=== PATIENT | female | born 1960 | race Caucasian/White ===

== ENCOUNTER 2017-05-31 15:49 | Emergency (ER) | payer OTHER ==
[~2017-05-31] VITALS: Ht 175.3 cm; Wt 67.6 kg
[2017-05-31] MEDS ORDERED: XARELTO15 MG PO (16:00)
[2017-05-31] MEDS ORDERED: NAPROSYN500 MG PO (18:25)
[2017-05-31] MEDS ORDERED: NORFLEX100 MG PO (18:25)
[2017-05-31 18:50] VITALS: BP 143/90
== END 2017-05-31 18:35 | disposition home or self-care (01) ==
LOC: ER 15:49
DX: S16.1XXA Strain of muscle, fascia and tendon at neck level, initial encounter (principal); S09.90XA Unspecified injury of head, initial encounter; Z88.8 Allergy status to other drugs, medicaments and biological substances; V43.52XA Car driver injured in collision with other type car in traffic accident, initial encounter; Y93.I9 Activity, other involving external motion; Y92.488 Other paved roadways as the place of occurrence of the external cause; Y99.8 Other external cause status